=== PATIENT | female | born 1990 | race Caucasian/White ===

== ENCOUNTER 2017-07-23 12:17 | Inpatient (IN) | payer OTHER ==
[~2017-07-23] VITALS: Ht 172.7 cm; Wt 141.0 kg
[~2017-07-23 12:17] MED LIST: AMOXICILLIN500 MG PO; BACTRIM DS TAB1 EACH PO; EXPECTA PRENAT1 EACH PO; IRON236 MG PO; NAPROXEN500 MG PO; NORCO 5-325 TA1 EACH PO; PRENATA CHEWAB1 EACH PO; PRENATAL VITAM1 EACH PO; TRIAMCINOLONE A15 G1 TOP; TUMS200 MG PO; ZITHROMAX250 MG PO
--- NOTE | 2017-07-28 13:56 | PR ---
[facility] [address] [facility] [address] [place], [place] [address] Signed Progress Notes IP Datetime Report Generated by CPN: 07/28/2017 13:56 PROGRESS NOTES: [id number] Impression: Slow Progression of Labor Procedures: Artificial ROM; Scalp Electrode Plan: Continue present management; Anticipate Vaginal Delivery VITAL SIGNS: [id number] Vital Signs: Reviewed; Within Normal Limits EXAM: [id number] Dilatation: 2.0 Effacement: 50 Station: -2 Uterine Contractions: irregular MEMBRANES: [id number] Membrane Status: Ruptured Amniotic Fluid Color: Clear ROM Note: AROM without difficulty Comments: Tolerating contractions well, would like to try labor without Epidural. Continue monitoring Fetus A: [id number] FHR Baseline: 130 Variability: Moderate 6-25bpm Accelerations: 15X15 Presentation: Vertex Fetus B: [id number] Signing Physician: Ck Matamoros MD CC: *Electronically Signed* 07/28/17 1356 CK MATAMOROS MD PATIENT NAME: LAKE MCNAMARA TIO PROGRESS NOTE DATE OF : [birth year] PHYSICIAN: CK MATAMOROS MD RPT #: [id number] REPORT IS CONFIDENTIAL AND NOT TO BE RELEASED WITHOUT AUTHORIZATION
--- NOTE | 2017-07-28 16:15 | PR ---
[facility] [address] [facility] [place] [place], [place] [address] Signed Progress Notes IP Datetime Report Generated by CPN: 07/28/2017 16:15 PROGRESS NOTES: [id number] Impression: Slow Progression of Labor Procedures: Artificial ROM; Scalp Electrode Plan: Continue present management VITAL SIGNS: [id number] Vital Signs: Reviewed; Within Normal Limits EXAM: [id number] Dilatation: 3.0 Effacement: 50 Station: -2 Uterine Contractions: every 2-3 minutes MEMBRANES: [id number] Membrane Status: Ruptured Amniotic Fluid Color: Clear ROM Note: AROM without difficulty Comments: Tolerating contractions well, will continue monitoring, may need Pitocin Fetus A: [id number] FHR Baseline: 135 Variability: Moderate 6-25bpm Accelerations: 15X15 Presentation: Vertex Fetus B: [id number] Signing Physician: Morgan Matamoros MD CC: *Electronically Signed* 07/28/17 1615 MORGAN MATAMOROS MD PATIENT NAME: LAKE MCNAMARA TIO PROGRESS NOTE DATE OF : 91 PHYSICIAN: MORGAN MATAMOROS MD RPT #: [id number] REPORT IS CONFIDENTIAL AND NOT TO BE RELEASED WITHOUT AUTHORIZATION
--- NOTE | 2017-07-29 00:59 | NUR ---
07/29/17 0059 Therese Alvarado 0046: PT ARRIVES TO HER ROOM IN [facility]. REPORT TAKEN FROM C WEB DEVELOPER. PT IS AWAKE AND DOING WELL, NO C/O'S PAIN OR NAUSEA. IV SITE IN LEFT HAND IS CDI.
--- NOTE | 2017-07-29 11:11 | PR ---
[facility] [address] [facility] [place], [place] [address] Signed PP Progress Notes Datetime Report Generated by CPN: 07/29/2017 11:11 SUBJECTIVE: [id number] Pain: Within normal limits Nausea/Vomiting: Denies Vital Signs: [id number] Vital Signs: Reviewed; Within Normal Limits EXAM: [id number] Abdomen/Uterus: Normal Lochia: Normal Extremities: Normal Exam Comments: dressing clean and dry IMPRESSION/PLAN/PROCEDURES: [id number] Impression: Normal progression Plan: Continue present management Procedures: None Progress Notes: Doing well, without complaint. Remove Berg and increase activity as tolerated today. Signing Physician: Ck Matamoros MD CC: *Electronically Signed* 07/29/17 1111 CK MATAMOROS MD PATIENT NAME: LAKE MCNAMARA PROGRESS NOTE DATE OF : 91 PHYSICIAN: CK MATAMOROS MD RPT #: [id number] REPORT IS CONFIDENTIAL AND NOT TO BE RELEASED WITHOUT AUTHORIZATION
--- NOTE | 2017-07-29 11:13 | OR ---
[id number] [place], [place] [address] Signed DATE OF OPERATION: 07/29/2017 SURGEON: Morgan Mejia MD Patient of Dr. Mejia. PREOPERATIVE DIAGNOSES: Term , failure to progress. POSTOPERATIVE DIAGNOSES: Term , failure to progress. PROCEDURE: Primary low transverse segment section, delivery of live female . BUSINESS UNIT CONTROLLER: Dr. Wick. ANESTHESIA: Epidural. ESTIMATED BLOOD LOSS: 500 mL. COMPLICATIONS: None. DRAINS: Berg to bladder. FINDINGS: Live female infant, Apgars 8 and 9, weight 7 pounds 1 ounce. Nuchal cord around the neck twice, tight. Baby was in ASHWIN position. Normal uterus. Normal tubes and ovaries bilateral. DESCRIPTION OF PROCEDURE: The patient was brought into the operating room, placed in a supine position. After adequate epidural anesthesia was obtained, she was prepped and draped in usual sterile fashion. The patient already had Berg catheter in place. A Pfannenstiel skin incision was made with a scalpel and extended through subcutaneous tissue with the Bovie. The Electronically Signed By: MORGAN MEJIA MD 07/29/17 1113 PATIENT NAME: LAKE MCNAMARA OPERATIVE REPORT DATE OF : 91 PHYSICIAN: MORGAN MEJIA MD REPORT #: [id number] REPORT IS CONFIDENTIAL AND NOT TO BE RELEASED WITHOUT AUTHORIZATION [place] [address] [place], [place] [address] Signed fascia was nicked with scalpel and extended in transverse fashion using curved scissors. The underlying abdominal musculature was bluntly and sharply from the fascia above and below the incision. The abdominal musculature was bluntly and sharply along the midline. The peritoneum was grasped with hemostat, elevated and nicked with Metzenbaum scissors, and extended in a vertical fashion using Metzenbaum scissors. The Gorge self-retaining retractor was inserted into the incision and tightened in place. A lower uterine segment was identified. The bladder was noted to be well below the area of dissection, so a small incision was made in the midline of lower uterine segment. Allis-Cherry clamp was used to grasp the upper edge of the incision since it was so thin to keep the uterine incision away from baby's head and the uterine incision opened in a small area and then finger dissection was used to extend the incision in a transverse fashion. The infant was noted to be in the vertex ASHWIN presentation. The 's head was easily delivered from the incision. The cord was noted to be wrapped around the neck twice tightly. This was removed and then the rest of the infant was easily delivered from the incision. The mouth and nose were suctioned with bulb syringe while the cord was doubly clamped and cut. The infant was passed off the table in good condition to the waiting nurse. The placenta was manually removed, and the uterine cavity was explored with a lap pad to remove any retained membranes. An angled stitch of 0 Monocryl was placed at one end of the incision and a running locking stitch of 0 Monocryl starting at the other end used to close the incision. A second running stitch of 0 Monocryl was used to imbricate the first layer. The entire pelvis was irrigated, suctioned, and examined. One small spot on the incision was noted. This was controlled with [id number] stitch of 0 Monocryl. The entire pelvis was irrigated, suctioned, and examined and any superficial bleeding spots were cauterized with the Bovie. When good hemostasis was obtained, the Gorge retractor was removed and sheet of ACell was placed over the lower uterine segment to help with healing. The anterior peritoneum was then closed using running stitch of 2-0 Vicryl suture. The abdominal musculature was reapproximated using interrupted stitches of 0 Vicryl suture. The abdominal wall incision was irrigated, suctioned, and examined and any bleeding spots were cauterized with the Bovie. The abdominal musculature was sprinkled with powdered ACell to help with healing and then the fascia was closed using two running stitch of 0 Vicryl suture, meeting in the midline. Subcutaneous tissue was irrigated, suctioned, and examined, and any bleeding spots were cauterized with the Bovie. A second vial of powdered ACell was sprinkled over the subcutaneous tissue, which was then closed using interrupted stitches of 3-0 Vicryl sutures. Skin was reapproximated using skin clips. The patient tolerated the procedure well, went to the recovery room in good condition. The sponge, needle, and instrument counts were correct at the end of the procedure. Electronically Signed By: MORGAN MEJIA MD 07/29/17 1113 PATIENT NAME: LAKE MCNAMARA OPERATIVE REPORT DATE OF : 91 PHYSICIAN: MORGAN MEJIA MD REPORT #: [id number] REPORT IS CONFIDENTIAL AND NOT TO BE RELEASED WITHOUT AUTHORIZATION [address] [place], [place] [address] Signed MD ESPERANZA Moore/MODL /[id number] Electronically Signed By: MORGAN MEJIA MD 07/29/17 1113 PATIENT NAME: [facility] OPERATIVE REPORT DATE OF : 91 PHYSICIAN: MORGAN MEJIA MD REPORT #: [id number] REPORT IS CONFIDENTIAL AND NOT TO BE RELEASED WITHOUT AUTHORIZATION
--- NOTE | 2017-07-30 10:49 | PR ---
[facility] [address] [facility] [place] [address] Signed PP Progress Notes Datetime Report Generated by CPN: 07/30/2017 10:49 SUBJECTIVE: [id number] Pain: Within normal limits Nausea/Vomiting: Denies Vital Signs: [id number] Vital Signs: Reviewed; Within Normal Limits Notable Details: PP Hgb/Hct = 10.1/39.6 EXAM: [id number] Abdomen/Uterus: Normal Lochia: Normal Extremities: Normal Incision: Normal Exam Comments: dressing clean and dry IMPRESSION/PLAN/PROCEDURES: [id number] Impression: Normal progression Plan: Continue present management Procedures: None Progress Notes: Doing well, without complaint. Voiding now without difficulty. Signing Physician: Ck Matamoros MD CC: *Electronically Signed* 07/30/17 1049 CK MATAMOROS MD PATIENT NAME: LAKE MCNAMARA PROGRESS NOTE DATE OF : 91 PHYSICIAN: CK MATAMOROS MD RPT #: [id number] REPORT IS CONFIDENTIAL AND NOT TO BE RELEASED WITHOUT AUTHORIZATION
--- NOTE | 2017-07-31 11:19 | PR ---
[facility] [address] [place] [address] Signed PP Progress Notes Datetime Report Generated by CPN: 07/31/2017 11:19 SUBJECTIVE: [id number] Pain: Within normal limits Nausea/Vomiting: Denies Vital Signs: [id number] Vital Signs: Reviewed; Within Normal Limits Notable Details: PP Hgb/Hct = 10.1/39.6 EXAM: [id number] Abdomen/Uterus: Normal Lochia: Normal Extremities: Normal Incision: Normal Exam Comments: dressing clean and dry IMPRESSION/PLAN/PROCEDURES: [id number] Impression: Normal progression Plan: Discharge Procedures: None Progress Notes: Doing well, ready to go home. Signing Physician: Ck Matamoros MD CC: *Electronically Signed* 07/31/17 1119 CK MATAMOROS MD PATIENT NAME: LAKE MCNAMARA PROGRESS NOTE DATE OF : 91 PHYSICIAN: CK MATAMOROS MD RPT #: [id number] REPORT IS CONFIDENTIAL AND NOT TO BE RELEASED WITHOUT AUTHORIZATION
== END 2017-07-31 14:45 | disposition home or self-care (01) | DRG 766 ==
LOC: FBCO 12:17 → EDSTATUS 13:48 → FBC 07-28 00:01
PROVIDERS: ADMIT General Practice
PROC: 10907ZC Drainage of Amniotic Fluid, Therapeutic from Products of Conception, Via Natural or Artificial Opening (ICD-10-PCS; 2017-07-28)
PROC: 3E033VJ Introduction of Other Hormone into Peripheral Vein, Percutaneous Approach (ICD-10-PCS; 2017-07-28)
PROC: 10D00Z1 Extraction of Products of Conception, Low, Open Approach (ICD-10-PCS; principal; 2017-07-29)
DX: O32.4XX0 Maternal care for high head at term, not applicable or unspecified (principal); Z3A.40 40 weeks gestation of pregnancy; Z37.0 Single live birth; O69.1XX0 Labor and delivery complicated by cord around neck, with compression, not applicable or unspecified
CPT/HCPCS: 01961; 36415; 85027; C1763; J0690; J1644; J2274; J2300; J2590; J2795; J7120

== ENCOUNTER 2019-06-19 20:36 | Emergency (ER) | payer OTHER ==
[~2019-06-19] VITALS: Ht 172.7 cm; Wt 136.1 kg
--- OUTSIDE RECORDS SUMMARY | 2019-06-19 20:40 | XMS ---
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 Gonzalo has no Care Guidelines for this patient. [place] [facility] (12 MO.) [facility] NOTE: Visits indicate total known visits. ED/C VISIT TRACKING (12 MO.) 06/19/2019 20:37 [facility] [place] [place] TYPE: Emergency COMPLAINT: - RIGHT FLANK PAIN 06/06/2019 00:00 [facility] [place] TYPE: Emergency COMPLAINT: - PELVIC PAIN INPATIENT VISIT TRACKING (12 MO.) No inpatient visits to display in this time frame [email or web address]
[2019-06-19] MEDS ORDERED: FLUOXETINE HCL20 MG PO (20:48)
== END 2019-06-20 00:45 | disposition home or self-care (01) ==
LOC: ED 20:36
DX: M54.6 Pain in thoracic spine (principal); Z91.018 Allergy to other foods; Z79.899 Other long term (current) drug therapy
CPT/HCPCS: 71046; 80053; 81001; 84703; 85025; 85379; 96361; 96374; 96375; 99284-25; A9270; J1885; J2405; J7030